=== PATIENT | male | born 1990 | race Caucasian/White ===

== ENCOUNTER 2017-06-27 14:42 | Emergency (ER) | payer SELFPAY ==
[2017-06-27 14:49] VITALS: BP 160/85; PULSE 78; TEMP 97.9; BMI 37.2
[2017-06-27] MEDS ORDERED: DIPHTH,PERTUSS(ACELL),TET 0.5 ML DISP.SYRIN IM ONE (15:20)
[2017-06-27] MEDS ORDERED: BACITRACIN 15 GM TUBE TOPICAL OINTMENT TP ONE (15:31)
--- NOTE | 2017-06-27 15:37 | PDOC ---
History of Present Illness - General Chief Complaint: Laceration Stated Complaint: LACERATION ON CHEST Time Seen by Provider: 06/27/17 15:13 History Source: Patient Exam Limitations: No Limitations - History of Present Illness Initial Comments: 06/27/17 15:31 Patient is a 27-year-old male, history of [id number] diabetes presents with superficial wound to chest. Patient states he was using a dirty blade at work and it jumped up and hit him in the chest. No active bleeding, patient states he is in the emergency department because he needs a tetanus shot. Denies any pain to area. Denies any other injury Past Medical History: Stq-vtdiumy-gtovfwphm diabetes diet controlled. Allergies: No known allergies Medications: No medications, recent 160 pound weight loss Family History: Non-contributory Social History: Denies smoking, alcohol use, or IVDU Review of Systems GENERAL/CONSTITUTIONAL: No fever or chills. No weakness. No weight change. HEAD, EYES, EARS, NOSE AND THROAT: No change in vision. No ear pain or discharge. No sore throat. CARDIOVASCULAR: No chest pain or shortness of breath. RESPIRATORY: No cough, wheezing, or hemoptysis. GASTROINTESTINAL: No nausea, vomiting, diarrhea or constipation. No rectal bleeding. GENITOURINARY: No dysuria, frequency, or change in urination. MUSCULOSKELETAL: No joint or muscle swelling or pain. No neck or back pain. SKIN AND BREASTS: Superficial laceration to left side of chest NEUROLOGIC: No headache, vertigo, loss of consciousness, or loss of sensation. PSYCHIATRIC: No depression or anxiety. ENDOCRINE: No increased thirst. No abnormal weight change. HEMATOLOGIC/LYMPHATIC: No anemia, easy bleeding, or history of blood clots. ALLERGIC/IMMUNOLOGIC: No hives or skin allergy. No latex allergy. Physical Exam: GENERAL: The patient is awake, alert, and fully oriented, in no acute distress. HEAD: Normal with no signs of trauma. EYES: Pupils equal, round and reactive to light, extraocular movements intact, sclera anicteric, conjunctiva clear. ENT: Ears normal, nares patent, oropharynx clear without exudates. Moist mucous membranes. No uvula deviation NECK: Normal range of motion, supple without lymphadenopathy, JVD, or masses. LUNGS: Breath sounds equal, clear to auscultation bilaterally. No wheezes, and no crackles. HEART: Regular rate and rhythm, normal S1 and S2 without murmur, rub or gallop. ABDOMEN: Soft, nontender, normoactive bowel sounds. No guarding, no rebound. No masses. No bruising or abrasions MUSCULOSKELETAL: Normal range of motion, no edema. No clubbing or cyanosis. No cords, erythema, or tenderness. No CVA Tenderness with fist. NEUROLOGICAL: Cranial nerves II through XII grossly intact. Normal speech, normal gait. PSYCH: Normal mood, normal affect. SKIN: Warm, Dry, normal turgor, no rashes or lesions noted. 14 cm superficial laceration to left side of chest Past History - Past Medical History Allergies/Adverse Reactions: Allergies Allergy/AdvReac Type Severity Reaction Status Date / Time Penicillins Allergy Intermediate Verified 06/27/17 14:46 Home Medications: Ambulatory Orders Clindamycin [Cleocin -] 300 mg PO TID #15 capsule 06/27/17 Diabetes: Yes (DIET CONTROLLED) HTN: Yes - Immunization History Immunization Up to Date: Yes - Psycho/Social/Smoking Cessation Hx Anxiety: No Suicidal Ideation: No Smoking Status: No Smoking History: Never smoked Have you smoked in the past 12 months: No Number of Cigarettes Smoked Daily: 0 Information on smoking cessation initiated: No Hx Alcohol Use: No Drug/Substance Use Hx: No Substance Use Type: None *Physical Exam - Vital Signs Last Vital Signs Temp Pulse Resp BP Pulse Ox 97.9 F 78 16 160/85 99 06/27/17 14:46 06/27/17 14:46 06/27/17 14:46 06/27/17 14:46 06/27/17 14:46 Medical Decision Making - Medical Decision Making 06/27/17 15:55 A/P : Patient is here for evaluation of a superficial wound to the chest. Area cleansed with normal saline, then bacitracin applied. Boostrix ordered. Will DC patient on clindamycin. Return if any increased redness, swelling or infection. *DC/Admit/Observation/Transfer Diagnosis at time of Disposition: Superficial laceration - Discharge Dispostion Disposition: HOME Condition at time of disposition: Good Admit: No - Prescriptions Prescriptions: Clindamycin [Cleocin -] 300 mg PO TID #15 capsule - Referrals Referrals: Sherry Mckinney MD [Primary Care Provider] - - Patient Instructions Printed Discharge Instructions: DI for Laceration Repair Additional Instructions: Please keep area clean and dry. Bacitracin daily to wound Monitor area for any increased redness, swelling or signs of infection.
== END 2017-06-27 16:12 | disposition home or self-care (01) ==
LOC: JERFT 14:42
PROC: 3E0234Z Introduction of Serum, Toxoid and Vaccine into Muscle, Percutaneous Approach (ICD-10-PCS; principal; 2017-06-27)
DX: S21.112A Laceration without foreign body of left front wall of thorax without penetration into thoracic cavity, initial encounter (principal); W27.8XXA Contact with other nonpowered hand tool, initial encounter; Y93.89 Activity, other specified; Y92.69 Other specified industrial and construction area as the place of occurrence of the external cause; Y99.0 Civilian activity done for income or pay; I10 Essential (primary) hypertension; E11.9 Type 2 diabetes mellitus without complications
CPT/HCPCS: 90715; 99281-25

== ENCOUNTER 2018-02-21 08:09 | Emergency (ER) | payer SELFPAY ==
[2018-02-21 08:16] VITALS: BP 164/97; PULSE 70; TEMP 98.2; BMI 36.6
--- NOTE | 2018-02-21 08:28 | PDOC ---
History of Present Illness - General Chief Complaint: Sore Throat Stated Complaint: THROAT PAIN Time Seen by Provider: 02/21/18 08:19 History Source: Patient Exam Limitations: No Limitations - History of Present Illness Initial Comments: 02/21/18 08:34 Patient is a 27-year-old male with no past medical history who presents emergency department today complaining of sore throat for one week. Patient states that he feels like his throat is dry and scratchy. He also feels like "someone is pulling on his glands." Patient endorses a occasional dry cough. Denies fevers, chills, earache, runny nose, shortness of breath, chest pain, nausea, vomiting and diarrhea Past History - Travel Traveled outside of the country in the last 30 days: No Close contact w/someone who was outside of country & ill: No - Past Medical History Allergies/Adverse Reactions: Allergies Allergy/AdvReac Type Severity Reaction Status Date / Time Penicillins Allergy Intermediate Verified 02/21/18 08:13 Home Medications: Ambulatory Orders NK [No Known Home Medication] 02/21/18 COPD: No Diabetes: Yes (DIET CONTROLLED) HTN: Yes - Immunization History Immunization Up to Date: Yes - Suicide/Smoking/Psychosocial Hx Smoking Status: No Smoking History: Never smoked Have you smoked in the past 12 months: No Number of Cigarettes Smoked Daily: 0 Hx Alcohol Use: No Drug/Substance Use Hx: No Substance Use Type: None Review of Systems - Review of Systems Able to Perform ROS?: Yes Comments:: 02/21/18 08:27 CONSTITUTIONAL: Absent: fever, chills, diaphoresis, generalized weakness, malaise, loss of appetite HEENT: Positive: sore throat Absent: rhinorrhea, nasal congestion, throat swelling, difficulty swallowing, mouth swelling, ear pain, eye pain, visual Changes CARDIOVASCULAR: Absent: chest pain, loss of consciousness, palpitations, irregular heart rate, peripheral edema RESPIRATORY: Present: dry cough Absent: shortness of breath, dyspnea with exertion, orthopnea , wheezing, stridor, hemoptysis GASTROINTESTINAL: Absent: abdominal pain, abdominal distension, nausea, vomiting, diarrhea, constipation, melena, hematochezia GENITOURINARY: Absent: dysuria, frequency, urgency, hesitancy, hematuria, flank pain, genital pain MUSCULOSKELETAL: Absent: myalgia, arthralgia, joint swelling SKIN: Absent: rash, itching, pallor HEMATOLOGIC/IMMUNOLOGIC: Absent: easy bleeding, easy bruising, lymphadenopathy, frequent infections ENDOCRINE: Absent: unexplained weight gain, unexplained weight loss, heat intolerance, cold intolerance NEUROLOGIC: Absent: headache, focal weakness or paresthesias, dizziness, unsteady gait, seizure, mental status changes, bladder or bowel incontinence PSYCHIATRIC: Absent: anxiety, depression, suicidal or homicidal ideation, hallucinations. Is the patient limited Georgian proficient: No *Physical Exam - Vital Signs Last Vital Signs Temp Pulse Resp BP Pulse Ox 98.2 F 70 19 164/97 100 02/21/18 08:13 02/21/18 08:13 02/21/18 08:13 02/21/18 08:13 02/21/18 08:13 - Physical Exam Comments: 02/21/18 08:27 GENERAL: Well developed, well nourished. Awake and alert. No acute distress. HEENT: Normocephalic, atraumatic. PERRLA, EOMI. No conjunctival pallor. Sclera are non- icteric. Moist mucous membranes. Oropharynx is with minor erythema posteriorly. No exudate or uvular deviation. NECK: Supple. Full ROM. No JVD. Carotid pulses 2+ and symmetric, without bruits. No thyromegaly. R cervical LAD. CARDIOVASCULAR: Regular rate and rhythm. No murmurs, rubs, or gallops. Distal pulses are 2+ and symmetric. PULMONARY: No evidence of respiratory distress. Lungs clear to auscultation bilaterally. No wheezing, rales or rhonchi. SKIN: Warm and dry. Normal capillary refill. No rashes. No jaundice. NEUROLOGICAL: Alert, awake, appropriate. Cranial nerves 2-12 intact. No deficits to light touch and temperature in face, upper extremities and lower extremities. No motor deficits in the in face, upper extremities and lower extremities. Normoreflexic in the upper and lower extremities. Normal speech. Toes are down- going bilaterally. Gait is normal without ataxia. Medical Decision Making - Medical Decision Making 02/21/18 09:08 Patient is a 27-year-old male with no past medical history presents emergency department today with 1 week of sore throat. Rapid strep test is negative at this time. Most likely a viral infection. We'll discharge home with symptomatic treatment. Return precautions given. Patient understands all discharge instructions and all questions were answered. *DC/Admit/Observation/Transfer Diagnosis at time of Disposition: Pharyngitis Qualifiers: Pharyngitis/tonsillitis etiology: unspecified etiology Qualified Code(s): J02.9 - Acute pharyngitis, unspecified - Discharge Dispostion Disposition: HOME Condition at time of disposition: Stable Admit: No - Referrals Referrals: Min Mckinney MD [Primary Care Provider] - - Patient Instructions Printed Discharge Instructions: DI for Pharyngitis/Tonsillopharyngitis -- Adult Additional Instructions: Your strep test was negative today. Your sore throat is most likely caused by a virus. Please drink plenty of fluids Please take Tylenol 650 mg every 4 hours as needed for pain. Please drink warm tea to help with the pain. You may use throat lozenges (Cecalor drops) Please follow up with her primary care doctor this week Return to the emergency department if you've worsening sore throat, difficulty breathing, difficulty swallowing, excess saliva, changes in your voice, or have any changes in your symptoms. - Post Discharge Activity Forms/Work/School Notes: Back to Work
[2018-02-21] MEDS ORDERED: ACETAMINOPHEN 325 MG TABLET (FP) PO ONE (08:33)
[2018-02-21] MEDS ORDERED: ACETAMINOPHEN 325 MG TABLET (FP) ONE (08:35)
== END 2018-02-21 09:11 | disposition home or self-care (01) ==
LOC: JERFT 08:09
DX: J02.9 Acute pharyngitis, unspecified (principal); I10 Essential (primary) hypertension; E11.9 Type 2 diabetes mellitus without complications
CPT/HCPCS: 87070; 87430; 99281-25

== ENCOUNTER 2018-07-22 11:00 | Emergency (ER) | payer SELFPAY ==
[2018-07-22 11:12] VITALS: BP 145/78; PULSE 84; TEMP 98.1; BMI 36.6
[2018-07-22] MEDS ORDERED: ALBUTEROL SO4 2.5/IPRATROPIUM 0.5 INH SOL 3 ML VIAL.NEB. NEB ONE ×2 (12:00→12:02)
[2018-07-22] MEDS ORDERED: predniSONE 20 MG TABLET (UD) PO ONE (12:00)
[2018-07-22] MEDS ORDERED: predniSONE 20 MG TABLET (UD) ONE (12:02)
--- NOTE | 2018-07-22 12:06 | PDOC ---
History of Present Illness - General Chief Complaint: Cold Symptoms Stated Complaint: COUGH Time Seen by Provider: 07/22/18 11:38 History Source: Patient Exam Limitations: No Limitations - History of Present Illness Initial Comments: 07/22/18 12:06 Pt is a 28 y/o M who presents to the ED for 1 week of dry cough. Pt states he has tried over the counter remedies; however, he states that the cough is persistant. He admits to headache from coughing. Denies fevers, sore throat, productive cough, shortness of breath, chest pain, n/v/d Past History - Travel Traveled outside of the country in the last 30 days: No Close contact w/someone who was outside of country & ill: No - Past Medical History Allergies/Adverse Reactions: Allergies Allergy/AdvReac Type Severity Reaction Status Date / Time Penicillins Allergy Intermediate Verified 07/22/18 11:13 Home Medications: Ambulatory Orders Albuterol Sulfate Inhaler - [Ventolin HFA Inhaler -] 1 - 2 inh PO Q4H #1 inhaler 07/22/18 Guaifenesin AC [Robitussin AC] 10 ml PO HS #100 ml MDD 1 07/22/18 predniSONE [Deltasone -] 40 mg PO DAILY #8 tablet 07/22/18 COPD: No Diabetes: Yes (DIET CONTROLLED) HTN: No - Immunization History Immunization Up to Date: Yes - Suicide/Smoking/Psychosocial Hx Smoking Status: No Smoking History: Never smoked Have you smoked in the past 12 months: No Number of Cigarettes Smoked Daily: 0 Hx Alcohol Use: No Drug/Substance Use Hx: No Substance Use Type: None Review of Systems - Review of Systems Able to Perform ROS?: Yes Comments:: 07/22/18 12:00 CONSTITUTIONAL: Absent: fever, chills, diaphoresis, generalized weakness, malaise, loss of appetite HEENT: Absent: rhinorrhea, nasal congestion, throat pain, throat swelling, difficulty swallowing, mouth swelling, ear pain, eye pain, visual Changes CARDIOVASCULAR: Absent: chest pain, loss of consciousness, palpitations, irregular heart rate, peripheral edema RESPIRATORY: Present: Non-productive cough Absent: shortness of breath, dyspnea with exertion , orthopnea, wheezing, stridor, hemoptysis GASTROINTESTINAL: Absent: abdominal pain, abdominal distension, nausea, vomiting, diarrhea, constipation, melena, hematochezia GENITOURINARY: Absent: dysuria, frequency, urgency, hesitancy, hematuria, flank pain, genital pain MUSCULOSKELETAL: Absent: myalgia, arthralgia, joint swelling SKIN: Absent: rash, itching, pallor HEMATOLOGIC/IMMUNOLOGIC: Absent: easy bleeding, easy bruising, lymphadenopathy, frequent infections ENDOCRINE: Absent: unexplained weight gain, unexplained weight loss, heat intolerance, cold intolerance NEUROLOGIC: Absent: headache, focal weakness or paresthesias, dizziness, unsteady gait, seizure, mental status changes, bladder or bowel incontinence PSYCHIATRIC: Absent: anxiety, depression, suicidal or homicidal ideation, hallucinations. Is the patient limited Danish proficient: No *Physical Exam - Vital Signs Last Vital Signs Temp Pulse Resp BP Pulse Ox 98.1 F 84 18 145/78 99 07/22/18 11:10 07/22/18 11:10 07/22/18 11:10 07/22/18 11:10 07/22/18 11:10 - Physical Exam Comments: 07/22/18 12:01 GENERAL: Well developed, well nourished. Awake and alert. No acute distress. HEENT: Normocephalic, atraumatic. PERRLA, EOMI. No conjunctival pallor. Sclera are non- icteric. Moist mucous membranes. Oropharynx is clear. NECK: Supple. Full ROM. No JVD. Carotid pulses 2+ and symmetric, without bruits. No thyromegaly. No lymphadenopathy. CARDIOVASCULAR: Regular rate and rhythm. No murmurs, rubs, or gallops. Distal pulses are 2+ and symmetric. PULMONARY: No evidence of respiratory distress. Lungs clear to auscultation bilaterally. No wheezing, rales or rhonchi. ABDOMINAL: Soft. Non-tender. Non-distended. No rebound or guarding. No organomegaly. Normoactive bowel sounds. MUSCULOSKELETAL Normal range of motion at all joints. No bony deformities or tenderness. No CVA tenderness. EXTREMITIES: No cyanosis. No clubbing. No edema. No calf tenderness. SKIN: Warm and dry. Normal capillary refill. No rashes. No jaundice. NEUROLOGICAL: Alert, awake, appropriate. Cranial nerves 2-12 intact. No deficits to light touch and temperature in face, upper extremities and lower extremities. No motor deficits in the in face, upper extremities and lower extremities. Normoreflexic in the upper and lower extremities. Normal speech. Toes are down- going bilaterally. Gait is normal without ataxia. PSYCHIATRIC: Cooperative. Good eye contact. Appropriate mood and affect. Medical Decision Making - Medical Decision Making 07/22/18 12:01 Pt is a 28 y/o M with no PMH who presents with one week of cough -Pt is afebrile, VSS -Lungs CTAB -Pt with dry wheeze when coughing. Most likely a bronchitis -Duoneb and prednisone given with relief of symptoms -DC home I discussed the physical exam findings, ancillary test results and final diagnoses with the patient. I answered all of the patient's questions. The patient was satisfied with the care received and felt comfortable with the discharge plan and treatment plan. The Patient agrees to follow up with the primary care physician/specialist within 24-72 hours. Return precautions were given. *DC/Admit/Observation/Transfer Diagnosis at time of Disposition: Bronchitis - Discharge Dispostion Disposition: HOME Condition at time of disposition: Stable Decision to Admit order: No - Referrals Referrals: Min Mckinney MD [Primary Care Provider] - - Patient Instructions Printed Discharge Instructions: DI for Acute Bronchitis Additional Instructions: You have bronchitis Please use the inhaler every 4 hours for the next week to help with your cough. Continue taking the prednisone daily for the next 4 days. You may take the Robitussin with codeine at night before bed to help with your cough. Do not drive or drink alcohol after taking this medication as it may make you sleepy. Please follow up with your primary care doctor in 1 week if your symptoms are not improving. Return to the emergency department if you have fevers, chills, worsening cough, chest pain, worsening shortness of breath or if you have any changes in your symptoms. - Post Discharge Activity Forms/Work/School Notes: Back to Work
== END 2018-07-22 12:21 | disposition home or self-care (01) ==
LOC: JERFT 11:00
PROC: 3E0F7GC Introduction of Other Therapeutic Substance into Respiratory Tract, Via Natural or Artificial Opening (ICD-10-PCS; principal; 2018-07-22)
DX: J40 Bronchitis, not specified as acute or chronic (principal); E11.9 Type 2 diabetes mellitus without complications
CPT/HCPCS: 99281-25; J7620

== ENCOUNTER 2018-07-31 09:53 | Emergency (ER) | payer SELFPAY ==
[2018-07-31 10:18] VITALS: BP 159/101; PULSE 64; TEMP 97.9; BMI 35.9
--- NOTE | 2018-07-31 11:56 | PDOC ---
History of Present Illness - General Chief Complaint: Cold Symptoms Stated Complaint: COUGH Time Seen by Provider: 07/31/18 11:44 - History of Present Illness Initial Comments: 28-year-old male without comorbidities presents for evaluation of cough and subjective fever chills or night sweats 3 weeks. He was treated in the emergency room with albuterol, steroids, and cough syrup. He was unable to tolerate the oral steroids. He stated made him anxious and he was unable to sleep. 07/31/18 11:54 Past History - Past Medical History Allergies/Adverse Reactions: Allergies Allergy/AdvReac Type Severity Reaction Status Date / Time Penicillins Allergy Intermediate Verified 07/31/18 10:11 Home Medications: Ambulatory Orders Albuterol Sulfate Inhaler - [Ventolin HFA Inhaler -] 1 - 2 inh PO Q4H #1 inhaler 07/22/18 Guaifenesin AC [Robitussin AC] 10 ml PO HS #100 ml MDD 1 07/22/18 Azithromycin [Zithromax -] 250 mg PO UTDICT #6 tab 07/31/18 CVA: No COPD: No Diabetes: Yes (DIET CONTROLLED) HTN: No - Immunization History Immunization Up to Date: Yes - Suicide/Smoking/Psychosocial Hx Smoking Status: No Smoking History: Never smoked Have you smoked in the past 12 months: No Number of Cigarettes Smoked Daily: 0 Hx Alcohol Use: No Drug/Substance Use Hx: No Substance Use Type: None Review of Systems - Review of Systems Constitutional: Yes: Chills, Fever, Malaise, Night Sweats Respiratory: Yes: Cough All Other Systems: Reviewed and Negative *Physical Exam - Vital Signs Last Vital Signs Temp Pulse Resp BP Pulse Ox 97.9 F 64 15 159/101 100 07/31/18 10:11 07/31/18 10:11 07/31/18 10:11 07/31/18 10:11 07/31/18 10:11 - Physical Exam Comments: HEAD: NC/AT EYES: Conjuntiva clear Ears: Canals and TM's normal NOSE: No d/c THROAT: Moist mucous membrances, oral pharanx clear, uvula midline NECK: Supple without adenopathy CARDIAC: S1 S2 LUNGS: CTA Full and Equal breath sounds ABDOMEN: Soft NT ND MS: Full ROM in all joints without edema NEUROLOGIC: No gross sensory or motor deficits, NVID SKIN: Normal color and temperature no lesions or rashes 07/31/18 11:54 Medical Decision Making - Medical Decision Making This may be a viral syndrome however 3 weeks of symptoms I will treat him with antibiotics although his exam is benign. I given him a Z-Harish for what may be a bronchitis. I'll have him follow-up with his PCP 07/31/18 11:55 *DC/Admit/Observation/Transfer Diagnosis at time of Disposition: Bronchitis - Discharge Dispostion Disposition: HOME Condition at time of disposition: Stable Decision to Admit order: No - Prescriptions Prescriptions: Azithromycin [Zithromax -] 250 mg PO UTDICT #6 tab - Referrals Referrals: Min Mckinney MD [Primary Care Provider] - - Patient Instructions Printed Discharge Instructions: DI for Acute Bronchitis Additional Instructions: Return to the emergency room should symptoms worsen or go unresolved. Otherwise follow-up with her primary care physician in 2-3 days for further evaluation and treatment options. Please take the medication as directed and finish the entire course of Zithromax. Continue with the cough syrup as directed - Post Discharge Activity
== END 2018-07-31 11:58 | disposition home or self-care (01) ==
LOC: JERFT 09:53
DX: J40 Bronchitis, not specified as acute or chronic (principal); E11.9 Type 2 diabetes mellitus without complications; Z88.0 Allergy status to penicillin
CPT/HCPCS: 99281-25

== ENCOUNTER 2019-10-28 11:59 | Emergency (ER) | payer OTHER ==
[2019-10-28 12:25] VITALS: BP 132/88; PULSE 109; TEMP 97.8; BMI 25.7
--- NOTE | 2019-10-28 12:51 | PDOC ---
History of Present Illness - General Chief Complaint: Injury Stated Complaint: LF FOOT INJURY Time Seen by Provider: 10/28/19 12:38 - History of Present Illness Initial Comments: 10/28/19 12:49 29-year-old male with a past medical history of hypertension presents for evaluation of atraumatic left ankle pain x1 day without systemic symptoms Past History - Past Medical History Allergies/Adverse Reactions: Allergies Allergy/AdvReac Type Severity Reaction Status Date / Time Penicillins Allergy Intermediate Verified 10/28/19 12:22 Home Medications: Ambulatory Orders Albuterol Sulfate Inhaler - [Ventolin HFA Inhaler -] 1 - 2 inh PO Q4H #1 inhaler 07/22/18 Guaifenesin AC [Robitussin AC] 10 ml PO HS #100 ml MDD 1 07/22/18 Azithromycin [Zithromax -] 250 mg PO UTDICT #6 tab 07/31/18 CVA: No COPD: No Diabetes: Yes (DIET CONTROLLED) HTN: No - Immunization History Immunization Up to Date: Yes - Psycho Social/Smoking Cessation Hx Smoking Status: No Smoking History: Never smoked Have you smoked in the past 12 months: No Number of Cigarettes Smoked Daily: 0 Hx Alcohol Use: No Drug/Substance Use Hx: No Substance Use Type: None Review of Systems - Review of Systems Musculoskeletal: Yes: Joint Pain *Physical Exam - Vital Signs Last Vital Signs Temp Pulse Resp BP Pulse Ox 97.8 F 109 H 18 132/88 99 10/28/19 12:22 10/28/19 12:22 10/28/19 12:22 10/28/19 12:22 10/28/19 12:22 - Physical Exam 10/28/19 12:49 Left ankle skin color temperature normal. There is no swelling. No tenderness about the knee there is full range of motion about the knee Thigh and calf are soft and nontender. No tenderness about the medial lateral malleolus base of the fifth metatarsal navicular or ATFL. Mild tenderness over the peroneal tendon. Posterior tibial tendon there is normal Achilles is nontender. Neurovascular intact Medical Decision Making - Medical Decision Making 10/28/19 12:50 Peroneal tendinitis weight-bear as tolerated follow-up with Ortho discussed use of Tylenol for pain avoiding anti-inflammatories because of his hypertension. Discharge - Discharge Information Problems reviewed: Yes Clinical Impression/Diagnosis: Peroneal tendinitis Condition: Stable Disposition: HOME - Admission No - Follow up/Referral Referrals: Santi Gastelum DO [Staff Physician] - - Patient Discharge Instructions Additional Instructions: Tylenol as directed for pain. May weight-bear as tolerated and follow-up with orthopedic surgery without fail in 2 to 3 days for further evaluation and treatment options. Return to the emergency room for worsening symptoms. - Post Discharge Activity
== END 2019-10-28 12:57 | disposition home or self-care (01) ==
LOC: JER 11:59 → JERFT 11:59
DX: M76.72 Peroneal tendinitis, left leg (principal); I10 Essential (primary) hypertension; E11.9 Type 2 diabetes mellitus without complications; Z88.0 Allergy status to penicillin
CPT/HCPCS: 99282-25

== ENCOUNTER 2021-07-20 09:24 | Emergency (ER) | payer BC, OTHER ==
[2021-07-20 09:48] VITALS: BP 142/85; PULSE 106; TEMP 98; BMI 38.5
== END 2021-07-20 11:20 | disposition home or self-care (01) ==
LOC: JER 09:24
DX: S93.402A Sprain of unspecified ligament of left ankle, initial encounter (principal); Y99.8 Other external cause status
CPT/HCPCS: 73610-TC-LT-FY; 73630-TC-LT; 99283-25

== ENCOUNTER 2022-03-14 15:36 | Emergency (ER) | payer BC ==
[2022-03-14 15:44] VITALS: PULSE 78; TEMP 98.8; BMI 37.2
[2022-03-14 16:24] VITALS: BP 150/93
[2022-03-14] MEDS ORDERED: ONDANSETRON 4 MG/2 ML VIAL IVPUSH ONE (16:40)
[2022-03-14] MEDS ORDERED: SODIUM CHLORIDE 0.9% 500 ML INFUS.BAG IV ONE (16:40)
[2022-03-14] MEDS ORDERED: ACETAMINOPHEN 1000 MG/100 ML BAG IVPB ONE (16:40)
[2022-03-14] MEDS ORDERED: ACETAMINOPHEN INJECTION 100 ML IVPB ONE (16:50)
[2022-03-14] MEDS ORDERED: ONDANSETRON 4 MG/2 ML VIAL ONE (16:50)
[2022-03-14 17:30] LABS: BASO % 0.4 % (0-2.0); EOS % 0.7 % (0-4.5); HEMATOCRIT 42.8 % (35.4-49); HEMOGLOBIN 14.3 GM/dL (11.7-16.9); LYMPH % 14.7 % (8-40); MCH 28.8 pg (25.7-33.7); MCHC 33.5 g/dl (32.0-35.9); MEAN PLT VOLUME 8.5 fl (7.5-11.1); MONO % 3.3 % (3.8-10.2); NEUT % 80.9 % (42.8-82.8); PLATELET COUNT 270 10^3/uL (134-434); RBC 4.98 M/mm3 (4.00-5.60); RDW 14.1 % (11.9-15.9); WHITE BLOOD COUNT 14.6 K/mm3 (4.0-10.0)
[2022-03-14] MEDS ORDERED: morphine CARPU-JECT 2 MG/1 ML DISP.SYRIN IVPUSH ONE (17:42)
[2022-03-14 17:49] LABS: CALCIUM 9.8 mg/dL (8.5-10.1)
[2022-03-14 17:50] LABS: BLOOD UREA NITROGEN 19.8 mg/dL (7-18)
[2022-03-14 17:52] LABS: CREATININE 1.1 mg/dL (0.55-1.3)
[2022-03-14 17:54] LABS: BILIRUBIN,TOTAL 0.3 mg/dL (0.2-1); TOT PROT 7.6 g/dl (6.4-8.2)
[2022-03-14 19:21] LABS: EPI CELLS 1 /uL (0-25.1); HYALINE CASTS 1 /uL (0-3.1); URINE APPEARANCE CLEAR; URINE BACTERIA 1 /uL (0-1359); URINE BILIRUBIN NEGATIVE (NEGATIVE); URINE COLOR YELLOW; URINE GLUCOSE (UA) NEGATIVE (NEGATIVE); URINE KETONE NEGATIVE (NEGATIVE); URINE LEUK ESTERASE NEGATIVE (NEGATIVE); URINE NITRITE NEGATIVE (NEGATIVE); URINE PROTEIN NEGATIVE (NEGATIVE); URINE RBC 49 /uL (0-23.9); URINE UROBILINOGEN 0.2 mg/dL (0.2-1.0); URINE WBC 4 /uL (0-25.8)
[2022-03-14] MEDS ORDERED: KETOROLAC TROMETHAMINE 15 MG/ML VIAL IVPUSH ONE (19:57)
[2022-03-14] MEDS ORDERED: KETOROLAC TROMETHAMINE 30 MG/1 ML VIAL IVPUSH ONE (19:58)
[2022-03-14] MEDS ORDERED: KETOROLAC TROMETHAMINE 30 MG/1 ML VIAL ONE (20:00)
== END 2022-03-14 20:47 | disposition home or self-care (01) ==
LOC: JER 15:36
PROC: 3E033GC Introduction of Other Therapeutic Substance into Peripheral Vein, Percutaneous Approach (ICD-10-PCS; principal; 2022-03-14)
DX: N20.0 Calculus of kidney (principal)
CPT/HCPCS: 36415; 74177-TC; 80053; 81003; 82962; 83690; 85025; 87086; 99285-25; Q9967